=== PATIENT | female | born 1965 | race Caucasian/White ===

== ENCOUNTER → 2018-09-09 | Outpatient (CLI) | payer BC | END | disposition home or self-care (01) | LOC: RAD 13:30 | DX: Z01.818 Encounter for other preprocedural examination (principal); K74.60 Unspecified cirrhosis of liver; D01.5 Carcinoma in situ of liver, gallbladder and bile ducts; K75.81 Nonalcoholic steatohepatitis (NASH) | CPT/HCPCS: 72040 ==

== ENCOUNTER → 2018-09-28 | Outpatient (CLI) | payer BC ==
[2018-09-28] MEDS: IOHEXOL 300MG/ML 150 ML BTL ×2 (12:07)
[2018-09-28] MEDS: SOD CHLORIDE 0.9% 100 ML (12:07)
== END | disposition home or self-care (01) ==
LOC: C/S 11:00
DX: R51 Headache (principal)
CPT/HCPCS: 70470

== ENCOUNTER → 2018-11-02 | Outpatient (CLI) | payer BC | END | disposition home or self-care (01) | LOC: RAD 11:03 | DX: M54.16 Radiculopathy, lumbar region (principal) ==

== ENCOUNTER → 2019-02-26 | Outpatient (CLI) | payer BC | END | disposition home or self-care (01) | LOC: RAD 12:28 | DX: M54.40 Lumbago with sciatica, unspecified side (principal) | CPT/HCPCS: 72100 ==